=== PATIENT | male | born 1955 ===

== ENCOUNTER 2021-08-24 15:48 | Outpatient (REF) | payer MEDICARE, SELFPAY ==
[2021-08-24 20:14] LABS: Abs Immature Grans 0.09 10^3/uL (0.0-0.06); Absolute Basophil Count 0.04 10^3/uL (0.0-0.2); Absolute Eosinophil Count 0.01 10^3/uL (0.0-0.7); Absolute Lymphocyte Count 0.99 10^3/uL (1.2-3.4); Absolute Monocyte Count 0.37 10^3/uL (0.1-0.8); Absolute Neutrophil Count 6.68 10^3/uL (1.2-6.7); Basophils % 0.5; Eosinophils % 0.1; HCT 35.3 % (40.0-50.0); HGB 11.5 g/dL (13.5-17.5); Immature Grans % 1.1; Lymphocytes % 12.1; MCH 29.5 pg (27.0-33.0); MCHC 32.6 % (32.0-36.0); MCV 91 fL (80-95); MPV 9.1 fL (8.0-11.0); Monocytes % 4.5; Neutrophils % 81.7; Platelet Count 581 10^3/uL (130-400); RDW 17.2 % (11.8-14.1); RDW-SD 57.1 fL; WBC 8.18 10^3/uL (4.4-10.8)
[2021-08-24 20:36] LABS: ALT 68 U/L (16-63); AST 27 U/L (15-37); Albumin 2.9 g/dL (3.4-5.0); Alkaline Phosphatase 92 U/L (46-116); Anion Gap 8.5 mmol/L (3-11); BUN 7 mg/dL (7-18); Bilirubin, Total 0.4 mg/dL (0.2-1.0); CO2 26.5 mmol/L (21.0-32.0); CREATININE 0.7 mg/dL (0.70-1.30); Calcium 8.8 mg/dL (8.5-10.1); Chloride 102 mmol/L (98-107); Glucose 104 mg/dL (74-106); Potassium 4.5 mmol/L (3.5-5.1); Sodium 137 mmol/L (136-145); TSH (W/Ref FT4) 1.24 uIU/mL (0.36-3.74); Total Protein 6.4 g/dL (6.4-8.2)
== END 2021-08-24 15:49 | disposition home or self-care (01) ==
LOC: NCHCN 15:48
PROVIDERS: Visit Provider Nurse Practitioner Family
DX: I48.91 Unspecified atrial fibrillation (principal)
CPT/HCPCS: 80053; 84443; 85025

== ENCOUNTER 2021-12-01 16:13 | Outpatient (REF) | payer MEDICARE, SELFPAY ==
[2021-12-01 21:15] LABS: Calculated LDL 80 mg/dL (<100); Cholesterol 171 mg/dL (<200); HDL Cholesterol 69 mg/dL (40-60); Triglyceride 114 mg/dL (<150)
== END 2021-12-01 16:14 | disposition home or self-care (01) ==
LOC: NCHCN 16:13
PROVIDERS: Visit Provider Nurse Practitioner Family
DX: R79.89 Other specified abnormal findings of blood chemistry (principal); Z13.220 Encounter for screening for lipoid disorders
CPT/HCPCS: 80061

== ENCOUNTER 2022-11-28 18:10 | Outpatient (REF) | payer MEDICARE, SELFPAY ==
[2022-11-28 19:25] LABS: ALT 22 U/L (16-63); AST 20 U/L (15-37); Anion Gap 8.6 mmol/L (3-11); BUN 8 mg/dL (7-18); CO2 26.4 mmol/L (21.0-32.0); CREATININE 0.8 mg/dL (0.70-1.30); Calcium 9.3 mg/dL (8.5-10.1); Chloride 104 mmol/L (98-107); Glucose 95 mg/dL (74-106); Potassium 4.2 mmol/L (3.5-5.1); Sodium 139 mmol/L (136-145)
== END 2022-11-28 18:11 | disposition home or self-care (01) ==
LOC: NCHCN 18:10
PROVIDERS: Visit Provider Nurse Practitioner Family
DX: I48.91 Unspecified atrial fibrillation (principal); I25.9 Chronic ischemic heart disease, unspecified
CPT/HCPCS: 80048; 84450; 84460

== ENCOUNTER 2023-03-01 16:06 | Outpatient (REF) | payer MEDICARE, SELFPAY ==
[2023-03-01 20:36] LABS: HCT 43.7 % (40.0-50.0); HGB 14.5 g/dL (13.5-17.5); MCH 28.7 pg (27.0-33.0); MCHC 33.2 % (32.0-36.0); MCV 86 fL (80-95); MPV 9.9 fL (8.0-11.0); Platelet Count 251 10^3/uL (130-400); RBC 5.06 10^6/uL (4.36-5.78); RDW 13.1 % (11.8-14.1); RDW-SD 40.9 fL; WBC 6.31 10^3/uL (4.4-10.8)
[2023-03-01 21:00] LABS: Hemoglobin A1C 5.9 % (<5.7)
[2023-03-02 18:10] LABS: Vitamin D 25 Total 25.2 ng/mL (30-100)
== END 2023-03-01 16:07 | disposition home or self-care (01) ==
LOC: NCHCN 16:06
PROVIDERS: Visit Provider Nurse Practitioner Family
DX: R53.83 Other fatigue (principal); E55.9 Vitamin D deficiency, unspecified; R73.09 Other abnormal glucose
CPT/HCPCS: 82306; 85027; 83036; 84443

== ENCOUNTER 2024-07-10 13:40 | Outpatient (REF) | payer MEDICARE, SELFPAY ==
[2024-07-10 19:39] LABS: Abs Immature Grans 0.02 10^3/uL (0.0-0.06); Absolute Basophil Count 0.04 10^3/uL (0.0-0.2); Absolute Eosinophil Count 0.15 10^3/uL (0.0-0.7); Absolute Lymphocyte Count 1.03 10^3/uL (1.2-3.4); Absolute Monocyte Count 0.71 10^3/uL (0.1-0.8); Absolute Neutrophil Count 4.29 10^3/uL (1.2-6.7); Basophils % 0.6 %; Eosinophils % 2.4 %; HCT 41.2 % (40.0-50.0); HGB 13.3 g/dL (13.5-17.5); Immature Grans % 0.3 %; Lymphocytes % 16.5 %; MCH 27.7 pg (27.0-33.0); MCHC 32.3 % (32.0-36.0); MCV 86 fL (80-95); MPV 9.8 fL (8.0-11.0); Monocytes % 11.4 %; Neutrophils % 68.8 %; Platelet Count 307 10^3/uL (130-400); RBC 4.81 10^6/uL (4.36-5.78); RDW 13.3 % (11.8-14.1); RDW-SD 41.8 fL; WBC 6.24 10^3/uL (4.4-10.8)
[2024-07-10 19:44] LABS: ESR 37 mm/hr (0-20)
[2024-07-10 19:49] LABS: ALT 22 U/L (16-63); AST 20 U/L (15-37); Albumin 3.4 g/dL (3.4-5.0); Alkaline Phosphatase 109 U/L (46-116); Anion Gap 5.1 mmol/L (3-11); BUN 10 mg/dL (7-18); Bilirubin, Total 0.5 mg/dL (0.2-1.0); CO2 31.9 mmol/L (21.0-32.0); CREATININE 0.6 mg/dL (0.70-1.30); Calcium 9.1 mg/dL (8.5-10.1); Chloride 101 mmol/L (98-107); Glucose 88 mg/dL (74-106); Potassium 4.4 mmol/L (3.5-5.1); Sodium 138 mmol/L (136-145); Total Protein 7.4 g/dL (6.4-8.2); Uric Acid 5.8 mg/dL (3.5-7.2)
[2024-07-11 17:51] LABS: Rheumatoid Factor <8.6 IU/mL (<12.0)
[2024-07-12 12:08] LABS: ANA Interpretation Negative (Negative)
[2024-07-14 17:03] LABS: Anaplasma phagocytophilum Negative (Negative); B. miyamotoi PCR Negative (Negative); Babesia divergens/MO-1 Negative (Negative); Babesia duncani Negative (Negative); Babesia microti Negative (Negative); Ehrlichia chaffeensis Negative (Negative); Ehrlichia ewingii/canis Negative (Negative); Ehrlichia muris eauclairensis Negative (Negative)
== END 2024-07-10 13:41 | disposition home or self-care (01) ==
LOC: NCHCN 13:40
PROVIDERS: Visit Provider Nurse Practitioner Family
DX: M25.59 Pain in other specified joint (principal)
CPT/HCPCS: 80053; 85652; 87798; 84550; 85025; 86038; 86140; 86431